=== PATIENT | male | born 1990 | race African-American/Black ===

== ENCOUNTER 2022-11-14 11:17 | Emergency (ER) | payer SELFPAY ==
--- NOTE | ~2022-11-14 | XR_ITS ---
EXAMINATION: XR hand, FOREARM, RIGHT CLINICAL INFORMATION: Heavy lifting pain COMPARISON: None TECHNIQUE: AP and lateral views of the right forearm were obtained. FINDINGS: The bones and soft tissues are normal. No fracture. Imaged portions of the elbow and wrist are unremarkable. XR/XR hand wrist RT IMPRESSION: No fracture or dislocation.
--- NOTE | ~2022-11-14 | XR_ITS ---
EXAMINATION: XR hand, FOREARM, RIGHT CLINICAL INFORMATION: Heavy lifting pain COMPARISON: None TECHNIQUE: AP and lateral views of the right forearm were obtained. FINDINGS: The bones and soft tissues are normal. No fracture. Imaged portions of the elbow and wrist are unremarkable. XR/XR forearm RT 2V IMPRESSION: No fracture or dislocation.
[2022-11-14 11:30] VITALS: BP 100/39; PULSE 57; RESP 19; TEMP 36.8; O2SAT 98
--- NOTE | 2022-11-14 11:32 | ED_ITS ---
HPI - Extremity Injury (Upper) General Chief Complaint: Extremity Problem <RENÉE Dawson - Last Filed: 11/14/22 11:33> Stated Complaint: R wrist inj 11/11/22 <RENÉE Dawson - Last Filed: 11/14/22 11:33> Time Seen by Provider: 11/14/22 11:39 <RENÉE Dawson - Last Filed: 11/14/22 11:33> Source: patient <RENÉE Otero - Last Filed: 11/14/22 15:57> Mode of arrival: ambulatory <RENÉE Otero Last Filed: 11/14/22 15:57> Limitations: no limitations <RENÉE Otero Last Filed: 11/14/22 15:57> History of Present Illness HPI narrative: 32 yo right hand dominant male presents to the ER c/o right hand and wrist pain after lifting heavy boxes a few days ago. He did not feel any pops/snaps but reported sharp pain. He developed some swelling to his wrist area and pain with movement of his fingers. He reports his hand and fingers were in spasm earlier today. He states the pain is from his distal forearm to the thumb and 1st finger, worse with movement and hand grasp. <RENÉE Otero - Last Filed: 11/14/22 15:57> MD complaint: injury to: right, wrist and hand <RENÉE Otero Last Filed: 11/14/22 15:57> Onset (ago): day(s) <RENÉE Otero Last Filed: 11/14/22 15:57> Other Extremity Injury: right: fingers, hand and wrist <RENÉE Otero Last Filed: 11/14/22 15:57> Other injuries: none <RENÉE Otero Last Filed: 11/14/22 15:57> Handedness: right <RENÉE Otero Last Filed: 11/14/22 15:57> Place: work <RENÉE Otero Last Filed: 11/14/22 15:57> Severity: moderate <RENÉE Otero Last Filed: 11/14/22 15:57> Relieving factors: rest <RENÉE Otero Last Filed: 11/14/22 15:57> Exacerbating factors: movement of extremity <RENÉE Otero Last Filed: 11/14/22 15:57> Associated symptoms: denies other symptoms <RENÉE Otero - Last Filed: 11/14/22 15:57> Related Data Home Medications: Previous Rx's Medication Instructions Recorded naproxen 500 mg tablet 500 mg PO BID PRN pain #20 tabs 11/14/22 <RENÉE Dawson - Last Filed: 11/14/22 11:33> Allergies/Adverse Reactions: Allergies Allergy/AdvReac Type Severity Reaction Status Date / Time No Known Allergies Allergy Verified 11/14/22 11:31 <RENÉE Dawson Last Filed: 11/14/22 11:33> Review of Systems Review of Systems: Yes all other systems are reviewed and are negative <RENÉE Otero Last Filed: 11/14/22 15:57> [facility] Social History Social History: Social History Advance Directives: No Advance Directives Information Provided: No <RENÉE Dawson Last Filed: 11/14/22 11:33> Physical Exam Vital Signs: Vital Signs: Last Vital Signs Temp 98.2 F 11/14/22 11:30 Pulse 57 11/14/22 11:30 Resp 19 11/14/22 11:30 BP 100/39 L 11/14/22 11:30 Pulse Ox 98 11/14/22 11:30 O2 Del Method 11/14/22 11:30 BMI result Body Mass Index 20.0 <RENÉE Dawson Last Filed: 11/14/22 11:33> Vital Signs: Last Vital Signs Temp 98.2 F 11/14/22 11:30 Pulse 57 11/14/22 11:30 Resp 19 11/14/22 11:30 BP 100/39 L 11/14/22 11:30 Pulse Ox 98 11/14/22 11:30 O2 Del Method 11/14/22 11:30 BMI result Body Mass Index 20.0 <RENÉE Otero Last Filed: 11/14/22 15:57> Appearance: Alert. Oriented X3. No acute distress. HEENT: normal inspection CVS: Normal heart rate and rhythm. Pulses normal. Respiratory: No respiratory distress. Skin: Skin warm and dry. Normal skin color. Normal skin turgor. No rashes. Extremities: volar aspect of the distal right forearm with mild swelling, moderate tenderness on the radial side, pain reproduced with adduction of the thumb and hand grasp. normal thumb adduction to each finger. no metacarpal tenderness. normal ROM of the wrist and digits. Neuro: Oriented X 3. No motor deficit. No sensory deficit. <RENÉE Otero Last Filed: 11/14/22 15:57> Course Course Course Narrative: RME-- 32yo M c/o R wrist, hand and forearm pain s/p heavy lifting at work on . Denies crush injury or fall Mild R wrist/hand and distal forearm ttp on exam, no deformity. NV intact. No cellulitis XRs ordered <RENÉE Dawson Last Filed: 11/14/22 11:33> Reevaluation(s) Reevaluation #1: XR normal. ?tendonitis. will place in velcro splint, start nsaids, RICE, and have him follow up with orthopedics for further evaluation and treatment. patient agrees with plan. <RENÉE Otero Last Filed: 11/14/22 15:57> Medical Decision Making Differential Diagnosis Differential Diagnoses: The differential diagnosis associated with the presentation includes <RENÉE Otero Last Filed: 11/14/22 15:57> wrist sprain, wrist strain, tendonitis, UCL injury, capral tunnel syndrome, overuse injury <RENÉE Otero Last Filed: 11/14/22 15:57> Independent Interpretation I performed an independent interpretation of an: Plain X-Ray <RENÉE Otero Last Filed: 11/14/22 15:57> Interpretation: normal appearing hand, wrist and foreaarm <RENÉE Otero Last Filed: 11/14/22 15:57> Radiology Impression Discussion of test interpretation with radiology: I have reviewed the radiologist's reading. <RENÉE Oteor Last Filed: 11/14/22 15:57> Radiologist Impression: XR/XR hand wrist RT IMPRESSION: No fracture or dislocation. XR/XR forearm RT 2V IMPRESSION: No fracture or dislocation. <RENÉE Otero - Last Filed: 11/14/22 15:57> Prescription Management I considered prescription management with: Pain Medication <RENÉE Otero - Last Filed: 11/14/22 15:57> nsaids encouarged <RENÉE Otero - Last Filed: 11/14/22 15:57> Critical Care Time Critical Care Time Critical Care Time: No <RENÉE Otero - Last Filed: 11/14/22 15:57> Discharge Plan Discharge Clinical Impression: Right wrist tendinitis <RENÉE Dawson Last Filed: 11/14/22 11:33> Patient Disposition: Home, Self-Care <RENÉE Dawson Last Filed: 11/14/22 11:33> Instructions: Tendinitis (ED) <RENÉE Dawson Last Filed: 11/14/22 11:33> Additional Instructions: Your x-rays today were normal. Your symptoms are most likely due to an overuse injury w/ inflammation of the tendons Wear the provided wrist splint for immobilization and support - recommend wearing this at night to keep your wrist in the neutral position Take the prescribed anti-inflammatory medication as directed Use ice several times per day Recommend following up with Orthopedics / Hand specialist for further evaluation and treatment if symptoms persist <RENÉE Dawson Last Filed: 11/14/22 11:33> Prescriptions: New naproxen 500 mg tablet 500 mg PO BID PRN (Reason: pain) Qty: 20 0RF <RENÉE Dawson Last Filed: 11/14/22 11:33> Referrals: [facility] [Provider Group] <RENÉE Dawson Last Filed: 11/14/22 11:33> Stand Alone Forms: Work/School Release <RENÉE Dawson Last Filed: 11/14/22 11:33> Interventions: ED Discharge Assessment Last Done: 11/14/22 13:09 <RENÉE Dawson Last Filed: 11/14/22 11:33> Discharge Date/Time: 11/14/22 13:09 <RENÉE Dawson Last Filed: 11/14/22 11:33>
== END 2022-11-14 13:09 | disposition home or self-care (01) ==
PROVIDERS: Emergency Provider Student in an Organized Health Care Education/Training Program
DX: M65.231 Calcific tendinitis, right forearm (principal); M25.531 Pain in right wrist
CPT/HCPCS: 29125; 73090; 73110; 73130; 99283